=== PATIENT | female | born 1960 | race Caucasian/White ===

== ENCOUNTER → 2016-07-18 | Outpatient (CLI) | payer OTHER ==
--- NOTE | 2016-07-18 16:41 | REP ---
Digital diagnostic bilateral mammography with CAD and focused left breast sonography: History: Patient is status post ultrasound-guided needle biopsy in Dr. Hunter's office. The lump palpated at 4 o'clock in the left breast 1 cm from the nipple by the referring provider on today's clinical breast exam. Comparison mammography is from 02/26/2016, 07/26/2015. Findings: A needle biopsy marker is again seen at approximately 12 o'clock in the left breast. A sharply circumscribed relatively low density 5 mm nodule is again visible in the left upper outer quadrant unchanged from 07/26/2015. Scattered fibroglandular elements are noted bilaterally. The right breast is unchanged from 07/17/2015 and 07/11/2014. No other neodensity is seen. No microcalcification is observed. No other mammographic finding. Sonographic findings: The left breast is scanned from 3 o'clock to 6 o'clock with reference to the providers clinical breast exam noted a lump at 4 o'clock, 1 cm from the nipple. Focused left breast sonographic images show heterogeneous fibroglandular background echotexture. No cyst, mass, architectural distortion or acoustic shadowing is seen by ultrasound. Impression: BIRADS category three probably benign breast imaging. No change in 1 year in the small relatively low density sharply circumscribed 5 mm nodule in the upper outer quadrant on the left. No correlate for the palpable lump described at 4 o'clock by either ultrasound or mammography. Clinical follow-up for this is recommended. 6-month follow-up left breast mammography recommended with repeat bilateral study in 1 year. This mammogram was interpreted with the aid of an FDA-approved computer-aided detection system. The patient states she had a clinical breast exam in July 2016. The patient letter being requested is M3. Signed by David Corona MD 07/18/2016 05:01 P
== END ==
LOC: M RAD 15:22
PROVIDERS: ATTEND Nurse Practitioner Family
DX: Z12.31 Encounter for screening mammogram for malignant neoplasm of breast (principal)

== ENCOUNTER → 2016-11-09 | Outpatient (CLI) | payer OTHER ==
[2016-11-09 09:57] LABS: MEAN CORPUSCULAR HEMOGLOBIN 31.2 pg (27.0-33.0); MEAN CORPUSCULAR HGB CONC 33.7 g/dl (32.0-36.5); MEAN CORPUSCULAR VOLUME 92.6 fl (80.0-96.0); RED CELL DISTRIBUTION WIDTH 12.6 % (11.5-14.5); WHITE BLOOD COUNT 5.1 K/mm3 (4.0-10.0)
[2016-11-09 10:24] LABS: ALBUMIN/GLOBULIN RATIO 1.21 (1.00-1.93); ALKALINE PHOSPHATASE 92 U/L (45-117); ALT/SGPT 34 U/L (12-78); ANION GAP 6 MEQ/L (8-16); AST/SGOT 17 U/L (15-37); BILIRUBIN,TOTAL 0.6 MG/DL (0.2-1.0); BLOOD UREA NITROGEN 10 MG/DL (7-18); CALCIUM LEVEL 9.1 MG/DL (8.5-10.1); CARBON DIOXIDE LEVEL 32 MEQ/L (21-32); CHLORIDE LEVEL 101 MEQ/L (98-107); CHOLESTEROL LEVEL 208 MG/DL (<200); CREATININE FOR GFR 0.78 MG/DL (0.55-1.02); GLOMERULAR FILTRATION RATE > 60.0 (>51); GLUCOSE, FASTING 107 MG/DL (70-105); POTASSIUM SERUM 3.9 MEQ/L (3.5-5.1); SODIUM LEVEL 139 MEQ/L (136-145); TOTAL PROTEIN 7.3 GM/DL (6.4-8.2); TRIGLYCERIDES LEVEL 136 MG/DL (<150)
--- NOTE | 2016-11-09 10:42 | REP ---
CHEST X-RAY PA AND LATERAL: 11/09/2016 CLINICAL HISTORY: Hypertension, fatigue. COMPARISON: 02/07/2015, 10/23/2013, 08/21/2012. FINDINGS: Subtle pleural opacity left mid lateral lung zone on the frontal view, unchanged and likely pleural plaque. Some infrahilar fibrotic changes on the right. There is no effusion, dense consolidation or parenchymal lesion otherwise. The heart, mediastinal and hilar contours remain normal. Airway is intact. The aorta unremarkable. Bony thorax without acute compression deformity. IMPRESSION: 1. Radiographic findings suggesting a pleural plaque on the left and some basilar fibrotic change without cardiomegaly, edema, effusion or other acute finding. Stable examination. Signed by Nic Guevara MD 11/09/2016 07:54 P
--- NOTE | 2016-11-11 01:01 | ECGEPIP ---
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
== END ==
LOC: M LAB 08:43
PROVIDERS: ATTEND Family Medicine
DX: I10 Essential (primary) hypertension (principal)

== ENCOUNTER → 2017-02-05 | Outpatient (CLI) | payer OTHER ==
--- NOTE | 2017-02-05 14:47 | REP ---
DIAGNOSTIC MAMMOGRAM LEFT BREAST: Multiple views of left breast performed and correlated with prior studies, most recent of which is 07/18/2016. Small subcentimeter nodule laterally in the left breast was initially seen on the exam of 07/17/2015 and has remained stable since that time. Once again, the 4 mm nodular opacity laterally in the left breast remains stable in appearance and size. No new nodule or clustered microcalcifications are seen. IMPRESSION: ACR 3 probably benign. Stable 4 mm nodular density lateral left breast, unchanged since 07/17/2015 exam. Recommend followup bilateral mammogram in July 2017. This mammogram was interpreted with the aid of an FDA-approved computer-aided detection system. The patient states she/he had a clinical breast exam in 07/2016. The patient letter being requested is M3. Signed by Robert Alcala MD 02/06/2017 05:33 P
== END ==
LOC: M RAD 13:07
PROVIDERS: ATTEND Nurse Practitioner Family
DX: R92.8 Other abnormal and inconclusive findings on diagnostic imaging of breast (principal)

== ENCOUNTER → 2017-08-07 | Outpatient (CLI) | payer OTHER | LOC: M RAD 13:06 | DX: Z12.31 Encounter for screening mammogram for malignant neoplasm of breast (principal); Z92.23 Personal history of estrogen therapy ==

== ENCOUNTER → 2018-08-08 | Outpatient (CLI) | payer OTHER ==
[2018-08-08 08:51] LABS: HEMATOCRIT 43.8 % (36.0-47.0); HEMOGLOBIN 14.5 g/dl (12.0-15.5); MEAN CORPUSCULAR HEMOGLOBIN 30.9 pg (27.0-33.0); MEAN CORPUSCULAR HGB CONC 33.1 g/dl (32.0-36.5); MEAN CORPUSCULAR VOLUME 93.4 fl (80.0-96.0); PLATELET COUNT, AUTOMATED 396 10^3/uL (150-450); RED BLOOD COUNT 4.69 10^6/uL (4.00-5.40); WHITE BLOOD COUNT 5.7 10^3/uL (4.0-10.0)
[2018-08-08 09:19] LABS: ALBUMIN 3.7 GM/DL (3.2-5.2); ALT/SGPT 31 U/L (12-78); BILIRUBIN,TOTAL 0.6 MG/DL (0.2-1.0); BLOOD UREA NITROGEN 12 MG/DL (7-18); CALCIUM LEVEL 8.8 MG/DL (8.5-10.1); CARBON DIOXIDE LEVEL 30 MEQ/L (21-32); CHLORIDE LEVEL 104 MEQ/L (98-107); CHOLESTEROL LEVEL 233 MG/DL (<200); CHOLESTEROL RISK RATIO 6.852 (<5); CREATININE FOR GFR 0.71 MG/DL (0.55-1.30); GLOMERULAR FILTRATION RATE > 60.0 (>51); GLUCOSE, FASTING 110 MG/DL (70-100); HDL CHOLESTEROL 34 MG/DL (>40); LDL CHOLESTEROL 156 MG/DL (<100); NON-HDL-C 199 MG/DL; POTASSIUM SERUM 4.3 MEQ/L (3.5-5.1); SODIUM LEVEL 141 MEQ/L (136-145); TOTAL PROTEIN 6.9 GM/DL (6.4-8.2); TRIGLYCERIDES LEVEL 213 MG/DL (<150)
[2018-08-08 09:46] LABS: HEMOGLOBIN A1c 6.3 %
[2018-08-10 10:46] LABS: TOTAL 25(OH) VITAMIN D 47.7 NG/ML (30.0-100.0)
== END ==
LOC: M LAB 08:08
PROVIDERS: ATTEND Family Medicine
DX: I10 Essential (primary) hypertension (principal); E03.9 Hypothyroidism, unspecified

== ENCOUNTER → 2018-08-13 | Outpatient (CLI) | payer OTHER ==
--- NOTE | 2018-08-13 13:57 | REPMRS ---
Patient History The patient states she had a clinical breast exam in July 2018. No known family history of cancer. Benign ultrasound-guided core biopsy of the left breast, August 08, 2015. Taking estrogen for 4 years. 3D TOMOSYNTHESIS WAS PERFORMED. Digital Mammo Screening Bilat: August 13, 2018 - Exam #: [id number] Bilateral CC and MLO view(s) were taken. Technologist: Whitney Mitchell, Technologist Prior study comparison: August 07, 2017, digital mammo diagnostic bilateral performed at [facility]. February 05, 2017, left breast digital mammo diagnostic unilateral performed at [facility]. FINDINGS: The breast tissue is heterogeneously dense. This may lower the sensitivity of mammography. There has been no change in the appearance of the mammogram from the prior studies. There is a moderate amount of residual fibroglandular tissue which is fairly symmetric. There is no interval development of dominant mass, areas of architectural distortion, or clustered microcalcification typical of malignancy. Assessment: BI-RADS/ACR category 1 mammogram. Negative Mammogram. Recommendation Routine screening mammogram in 1 year (for women over age 40). This mammogram was interpreted with the aid of an FDA-approved computer-aided dectection system. Electronically Signed By: Robert Alcala MD 08/13/18 [id number]
== END ==
LOC: M RAD 13:02
PROVIDERS: ATTEND Nurse Practitioner Family
DX: Z12.31 Encounter for screening mammogram for malignant neoplasm of breast (principal); Z79.890 Hormone replacement therapy

== ENCOUNTER → 2019-09-23 | Outpatient (CLI) | payer OTHER ==
--- NOTE | 2019-09-23 09:39 | REPMRS ---
Patient History The patient states she had a clinical breast exam in July 2019.No known family history of cancer. Benign ultrasound-guided core biopsy of the left breast, August 08, 2015. Taking estrogen for 4 years. Digital Woman Screen Mammo: September 23, 2019 - Exam #: [id number] Bilateral CC and MLO view(s) were taken. Technologist: Whitney Mitchell, Technologist Prior study comparison: August 13, 2018, bilateral digital mammo screening bilat, performed at [facility]. August 07, 2017, digital mammo diagnostic bilateral, performed at [facility]. February 05, 2017, left breast digital mammo diagnostic unilateral, performed at [facility]. FINDINGS: There are scattered fibroglandular densities. The Volpara volumetric breast density category is:B. There is a needle biopsy marker clip again noted in the left breast. There has been no change in the appearance of the mammogram from the prior studies. There is a mild amount of scattered fibroglandular density which is fairly symmetric. There is no interval development of dominant mass, architectural distortion, or grouped microcalcification suggestive of malignancy. 3-D tomosynthesis shows no additional findings. Assessment: BI-RADS/ACR category 2 mammogram. Benign Findings. Recommendation Routine screening mammogram of both breasts in 1 year (for women over age 40). This patient's Lifetime Breast Cancer Risk is estimated at 12.8 %. This mammogram was interpreted with the aid of an FDA-approved computer-aided dectection system. Electronically Signed By: Livan Corona MD 09/23/19 0939
== END ==
LOC: M WHC 08:53
PROVIDERS: ATTEND Nurse Practitioner Family
DX: Z12.31 Encounter for screening mammogram for malignant neoplasm of breast (principal)

== ENCOUNTER → 2020-05-06 | Outpatient (CLI) | payer OTHER ==
[2020-05-06 10:03] LABS: HEMATOCRIT 44.7 % (36.0-47.0); HEMOGLOBIN 14.4 g/dl (12.0-15.5); MEAN CORPUSCULAR HEMOGLOBIN 30.3 pg (27.0-33.0); MEAN CORPUSCULAR HGB CONC 32.2 g/dl (32.0-36.5); MEAN CORPUSCULAR VOLUME 93.9 fl (80.0-96.0); PLATELET COUNT, AUTOMATED 428 10^3/uL (150-450); RED BLOOD COUNT 4.76 10^6/uL (4.00-5.40); WHITE BLOOD COUNT 5.9 10^3/uL (4.0-10.0)
[2020-05-06 10:35] LABS: ALBUMIN 3.8 GM/DL (3.2-5.2); ALT/SGPT 40 U/L (12-78); BILIRUBIN,TOTAL 0.6 MG/DL (0.2-1.0); BLOOD UREA NITROGEN 14 MG/DL (7-18); CALCIUM LEVEL 9.2 MG/DL (8.5-10.1); CARBON DIOXIDE LEVEL 30 MEQ/L (21-32); CHLORIDE LEVEL 103 MEQ/L (98-107); CHOLESTEROL LEVEL 232 MG/DL (<200); CREATININE FOR GFR 0.78 MG/DL (0.55-1.30); GLOMERULAR FILTRATION RATE > 60.0 (>51); GLUCOSE, FASTING 107 MG/DL (70-100); HDL CHOLESTEROL 33 MG/DL (>40); LDL CHOLESTEROL 172 MG/DL (<100); NON-HDL-C 199 MG/DL; POTASSIUM SERUM 4.2 MEQ/L (3.5-5.1); SODIUM LEVEL 140 MEQ/L (136-145); TOTAL PROTEIN 6.9 GM/DL (6.4-8.2); TRIGLYCERIDES LEVEL 135 MG/DL (<150)
[2020-05-06 11:11] LABS: HEMOGLOBIN A1c 6.3 %
[2020-05-08 13:13] LABS: TOTAL 25(OH) VITAMIN D 54.6 NG/ML (30.0-100.0)
== END ==
LOC: M LAB 09:14
PROVIDERS: ATTEND Family Medicine
DX: R53.81 Other malaise (principal); I10 Essential (primary) hypertension; E11.9 Type 2 diabetes mellitus without complications

== ENCOUNTER → 2020-09-25 | Outpatient (CLI) | payer OTHER ==
--- NOTE | 2020-09-25 08:53 | REPMRS ---
Patient History The patient states she had a clinical breast exam in 07/2020. Patient had first child at age 36. No known family history of cancer. Benign ultrasound-guided core biopsy of the left breast, August 08, 2015. Took estrogen for 4 years. Patient states no breast complaints today. Patient has signed MRS History Sheet. Digital Woman Screen Mammo: September 25, 2020 - Exam #: [id number] Bilateral CC and MLO view(s) were taken. Technologist: Anila Lugo, Technologist Prior study comparison: September 23, 2019, bilateral digital woman screen mammo performed at [facility]. August 13, 2018, bilateral digital mammo screening bilat, performed at [facility]. FINDINGS: There are scattered fibroglandular densities. Screening. Digital screening (2D) mammography was performed bilaterally in the CC and MLO projections. Additionally, breast tomosynthesis (3D mammography) was performed bilaterally in the CC and MLO projections. Todays exam was compared to the prior exams(s). By history, the patient has no complaints of a palpable breast abnormality or other significant breast complaints. The breasts are unchanged in size and shape. There are no jada-soft tissue densities or spiculated masses. There is no internal architectural distortion. There are no suspicious jada-calcific clusters. Skin thickening or nipple retraction is not present. IMPRESSION: BI-RADS Category 2- Benign Findings(s). There is no evidence of malignant alteration of the breasts. Followup examination recommended in one year. The Volpara volumetric breast density category is B, there are scattered areas of fibroglandular density. This mammogram was read with the assistance of [employer],an FDA approved computer aided detection system for mammography. The lifetime Tyrer-Cuzick score is 12.6% Negative x-ray reports should not delay surgical consultation if a dominant or clinically suspicious mass is present. Not all breast cancers can be identified by mammography. Therefore, we recommend that you continue to perform regular breast self-examination and physical examination and then promptly contact your physician of any concerns or changes. Adenosis and dense breasts may obscure an underlying neoplasm. Assessment: BI-RADS/ACR category 2 mammogram. Benign Findings. Recommendation Routine screening mammogram of both breasts in 1 year. Electronically Signed By: Caio Frye DO 09/25/20 0805
== END ==
LOC: M WHC 07:55
PROVIDERS: ATTEND Nurse Practitioner Family
DX: Z12.31 Encounter for screening mammogram for malignant neoplasm of breast (principal); Z86.018 Personal history of other benign neoplasm

== ENCOUNTER → 2021-05-05 | Outpatient (CLI) | payer OTHER ==
[2021-05-05 09:11] LABS: HEMATOCRIT 42.9 % (36.0-47.0); HEMOGLOBIN 14.4 g/dl (12.0-15.5); MEAN CORPUSCULAR HEMOGLOBIN 31.2 pg (27.0-33.0); MEAN CORPUSCULAR HGB CONC 33.6 g/dl (32.0-36.5); MEAN CORPUSCULAR VOLUME 93.1 fl (80.0-96.0); PLATELET COUNT, AUTOMATED 408 10^3/uL (150-450); RED BLOOD COUNT 4.61 10^6/uL (4.00-5.40); WHITE BLOOD COUNT 5.9 10^3/uL (4.0-10.0)
[2021-05-05 09:31] LABS: HEMOGLOBIN A1c 6.2 %
[2021-05-05 09:41] LABS: ALBUMIN 3.8 GM/DL (3.2-5.2); ALT/SGPT 36 U/L (12-78); BILIRUBIN,TOTAL 0.7 MG/DL (0.2-1.0); BLOOD UREA NITROGEN 15 MG/DL (7-18); CALCIUM LEVEL 9.3 MG/DL (8.5-10.1); CARBON DIOXIDE LEVEL 30 MEQ/L (21-32); CHLORIDE LEVEL 104 MEQ/L (98-107); CHOLESTEROL LEVEL 213 MG/DL (<200); CHOLESTEROL RISK RATIO 6.264 (<5); CREATININE FOR GFR 0.76 MG/DL (0.55-1.30); GLOMERULAR FILTRATION RATE > 60.0 (>51); GLUCOSE, FASTING 108 MG/DL (70-100); HDL CHOLESTEROL 34 MG/DL (>40); LDL CHOLESTEROL 147 MG/DL (<100); NON-HDL-C 179 MG/DL; SODIUM LEVEL 139 MEQ/L (136-145); TRIGLYCERIDES LEVEL 160 MG/DL (<150)
[2021-05-07 10:22] LABS: TOTAL 25(OH) VITAMIN D 47.4 NG/ML (30.0-100.0)
== END ==
LOC: M LAB 08:16
PROVIDERS: ATTEND Family Medicine
DX: I10 Essential (primary) hypertension (principal); R53.83 Other fatigue

== ENCOUNTER → 2021-10-06 | Outpatient (CLI) | payer OTHER ==
[2021-10-06 08:43] LABS: HEMATOCRIT 43.2 % (36.0-47.0); HEMOGLOBIN 14.7 g/dl (12.0-15.5); MEAN CORPUSCULAR VOLUME 94.1 fl (80.0-96.0); PLATELET COUNT, AUTOMATED 376 10^3/uL (150-450); RED BLOOD COUNT 4.59 10^6/uL (4.00-5.40); WHITE BLOOD COUNT 5.8 10^3/uL (4.0-10.0)
[2021-10-06 09:11] LABS: ALBUMIN 3.7 GM/DL (3.2-5.2); ALT/SGPT 38 U/L (12-78); BILIRUBIN,TOTAL 0.6 MG/DL (0.2-1.0); BLOOD UREA NITROGEN 13 MG/DL (7-18); CALCIUM LEVEL 9.4 MG/DL (8.8-10.2); CARBON DIOXIDE LEVEL 28 MEQ/L (21-32); CHLORIDE LEVEL 107 MEQ/L (98-107); CHOLESTEROL LEVEL 147 MG/DL (<200); CHOLESTEROL RISK RATIO 4.083 (<5); CREATININE FOR GFR 0.78 MG/DL (0.55-1.30); GLOMERULAR FILTRATION RATE > 60.0 (>45); GLUCOSE, FASTING 117 MG/DL (70-100); HDL CHOLESTEROL 36 MG/DL (>40); LDL CHOLESTEROL 90 MG/DL (<100); NON-HDL-C 111 MG/DL; POTASSIUM SERUM 4.4 MEQ/L (3.5-5.1); SODIUM LEVEL 142 MEQ/L (136-145); TOTAL PROTEIN 6.9 GM/DL (6.4-8.2); TRIGLYCERIDES LEVEL 106 MG/DL (<150)
[2021-10-06 09:21] LABS: HEMOGLOBIN A1c 6.4 %
[2021-10-08 13:23] LABS: TOTAL 25(OH) VITAMIN D 60.6 NG/ML (30.0-100.0)
== END ==
LOC: M EKG 08:10
PROVIDERS: ATTEND Family Medicine
DX: I10 Essential (primary) hypertension (principal); R53.83 Other fatigue; E03.9 Hypothyroidism, unspecified; I70.0 Atherosclerosis of aorta

== ENCOUNTER → 2022-01-11 | Outpatient (CLI) | payer OTHER | LOC: M WHC 12:57 | PROVIDERS: ATTEND Nurse Practitioner Family | DX: Z12.31 Encounter for screening mammogram for malignant neoplasm of breast (principal) ==

== ENCOUNTER → 2022-05-17 | Outpatient (CLI) | payer OTHER ==
[2022-05-17 09:10] LABS: HEMATOCRIT 44.8 % (36.0-47.0); HEMOGLOBIN 14.6 g/dl (12.0-15.5); MEAN CORPUSCULAR HEMOGLOBIN 30.8 pg (27.0-33.0); MEAN CORPUSCULAR HGB CONC 32.6 g/dl (32.0-36.5); MEAN CORPUSCULAR VOLUME 94.5 fl (80.0-96.0); PLATELET COUNT, AUTOMATED 383 10^3/uL (150-450); RED BLOOD COUNT 4.74 10^6/uL (4.00-5.40); WHITE BLOOD COUNT 5.8 10^3/uL (4.0-10.0)
[2022-05-17 09:40] LABS: ALBUMIN 3.8 G/DL (3.2-5.2); ALKALINE PHOSPHATASE 84 U/L (46-116); ALT/SGPT 33 U/L (7.0-40); AST/SGOT 22 U/L (<34); BILIRUBIN,TOTAL 0.6 MG/DL (0.3-1.2); BLOOD UREA NITROGEN 13 MG/DL (9-23); CALCIUM LEVEL 9.3 MG/DL (8.3-10.6); CARBON DIOXIDE LEVEL 32 MMOL/L (20-31); CHLORIDE LEVEL 103 MMOL/L (98-107); CHOLESTEROL LEVEL 139 MG/DL (<200); CHOLESTEROL RISK RATIO 4.37 (<5); CREATININE FOR GFR 0.75 MG/DL (0.55-1.30); GLOMERULAR FILTRATION RATE > 60.0 (>45); GLUCOSE, FASTING 118 MG/DL (74-106); HDL CHOLESTEROL 31.8 MG/DL (>40); LDL CHOLESTEROL 81.2 MG/DL (<100); NON-HDL-C 107 MG/DL; POTASSIUM SERUM 4.2 MMOL/L (3.5-5.1); SODIUM LEVEL 139 MMOL/L (136-145); TOTAL PROTEIN 6.6 G/DL (5.7-8.2); TRIGLYCERIDES LEVEL 130 MG/DL (<150)
[2022-05-17 09:42] LABS: THYROID STIMULATING HORMONE 0.423 uIU/ML (0.55-4.78); TOTAL 25(OH) VITAMIN D 64.3 NG/ML (20.0-100.0)
[2022-05-17 10:11] LABS: HEMOGLOBIN A1c 6.2 % (4.0-6.0)
== END ==
LOC: M LAB 08:13
PROVIDERS: ATTEND Family Medicine
DX: I10 Essential (primary) hypertension (principal); R53.83 Other fatigue; E03.9 Hypothyroidism, unspecified

== ENCOUNTER → 2023-01-16 | Outpatient (CLI) | payer OTHER | LOC: M WHC 09:54 | PROVIDERS: ATTEND Nurse Practitioner Family | DX: Z12.31 Encounter for screening mammogram for malignant neoplasm of breast (principal) ==

== ENCOUNTER → 2023-02-17 | Outpatient (CLI) | payer OTHER ==
[~2023-02-17] MED LIST: ISOVUE-370 76% 100ML VIAL ONE
== END ==
LOC: M PLAIMG 07:53
PROVIDERS: ATTEND Otolaryngology
DX: R22.1 Localized swelling, mass and lump, neck (principal)
CPT/HCPCS: 70491; Q9967

== ENCOUNTER → 2023-03-31 | Outpatient (CLI) | payer OTHER | LOC: M RAD 15:32 | PROVIDERS: ATTEND Otolaryngology | DX: J32.0 Chronic maxillary sinusitis (principal) ==

== ENCOUNTER → 2023-05-16 | Outpatient (CLI) | payer OTHER | LOC: M SLEEP HO 10:55 | PROVIDERS: ATTEND Physician Assistant | DX: R40.0 Somnolence (principal); R06.83 Snoring; G47.30 Sleep apnea, unspecified ==

== ENCOUNTER → 2024-01-21 | Outpatient (CLI) | payer OTHER | LOC: M WHC 08:06 | PROVIDERS: ATTEND Nurse Practitioner Family | DX: Z12.31 Encounter for screening mammogram for malignant neoplasm of breast (principal) ==

== ENCOUNTER → 2024-02-21 | Outpatient (CLI) | payer OTHER ==
[2024-02-21 09:08] LABS: HEMATOCRIT 43.1 % (36.0-47.0); HEMOGLOBIN 14.5 g/dl (12.0-15.5); MEAN CORPUSCULAR HEMOGLOBIN 31.3 pg (27.0-33.0); MEAN CORPUSCULAR HGB CONC 33.6 g/dl (32.0-36.5); MEAN CORPUSCULAR VOLUME 93.1 fl (80.0-96.0); PLATELET COUNT, AUTOMATED 389 10^3/uL (150-450); RED BLOOD COUNT 4.63 10^6/uL (4.00-5.40); WHITE BLOOD COUNT 5.6 10^3/uL (4.0-10.0)
[2024-02-21 09:30] LABS: HEMOGLOBIN A1c 6.9 % (4.0-6.0)
[2024-02-21 09:36] LABS: ALBUMIN 3.8 G/DL (3.2-5.2); ALKALINE PHOSPHATASE 90 U/L (46-116); ALT/SGPT 43 U/L (7.0-40); AST/SGOT 21 U/L (<34); BILIRUBIN,TOTAL 0.7 MG/DL (0.3-1.2); BLOOD UREA NITROGEN 12 MG/DL (9-23); CALCIUM LEVEL 10.1 MG/DL (8.3-10.6); CARBON DIOXIDE LEVEL 32 MMOL/L (20-31); CHLORIDE LEVEL 102 MMOL/L (98-107); CHOLESTEROL LEVEL 155 MG/DL (<200); CHOLESTEROL RISK RATIO 5.14 (<5); GLOMERULAR FILTRATION RATE > 60.0 (>45); GLUCOSE, FASTING 128 MG/DL (74-106); HDL CHOLESTEROL 30.1 MG/DL (>40); LDL CHOLESTEROL 98.5 MG/DL (<100); NON-HDL-C 124.9 MG/DL; POTASSIUM SERUM 4.2 MMOL/L (3.5-5.1); SODIUM LEVEL 140 MMOL/L (136-145); TRIGLYCERIDES LEVEL 132 MG/DL (<150)
[2024-02-21 09:38] LABS: THYROID STIMULATING HORMONE 1.772 uIU/ML (0.55-4.78); TOTAL 25(OH) VITAMIN D 78.6 NG/ML (20.0-100.0)
== END ==
LOC: M LAB 08:09
PROVIDERS: ATTEND Family Medicine
DX: I10 Essential (primary) hypertension (principal); R53.83 Other fatigue; E03.9 Hypothyroidism, unspecified

== ENCOUNTER → 2024-08-21 | Outpatient (CLI) | payer BC ==
[2024-08-21 09:18] LABS: HEMATOCRIT 42.8 % (36.0-47.0); HEMOGLOBIN 14.4 g/dl (12.0-15.5); MEAN CORPUSCULAR HEMOGLOBIN 31.6 pg (27.0-33.0); MEAN CORPUSCULAR HGB CONC 33.6 g/dl (32.0-36.5); MEAN CORPUSCULAR VOLUME 93.9 fl (80.0-96.0); PLATELET COUNT, AUTOMATED 375 10^3/uL (150-450); RED BLOOD COUNT 4.56 10^6/uL (4.00-5.40); WHITE BLOOD COUNT 5.7 10^3/uL (4.0-10.0)
[2024-08-21 09:22] LABS: ALBUMIN 3.8 G/DL (3.2-5.2); ALKALINE PHOSPHATASE 80 U/L (35-104); ALT/SGPT 41 U/L (7.0-40); AST/SGOT 25 U/L (<34); BILIRUBIN,TOTAL 0.7 MG/DL (0.3-1.2); BLOOD UREA NITROGEN 13 MG/DL (9-23); CALCIUM LEVEL 9.5 MG/DL (8.3-10.6); CARBON DIOXIDE LEVEL 32 MMOL/L (20-31); CHLORIDE LEVEL 102 MMOL/L (98-107); CHOLESTEROL LEVEL 164 MG/DL (<200); CHOLESTEROL RISK RATIO 4.95 (<5); CREATININE FOR GFR 0.66 MG/DL (0.55-1.30); GLOMERULAR FILTRATION RATE > 60.0 (>45); GLUCOSE, FASTING 132 MG/DL (74-106); HDL CHOLESTEROL 33.1 MG/DL (>40); LDL CHOLESTEROL 94.9 MG/DL (<100); NON-HDL-C 130.9 MG/DL; POTASSIUM SERUM 4.4 MMOL/L (3.5-5.1); SODIUM LEVEL 140 MMOL/L (136-145); TOTAL PROTEIN 6.9 G/DL (5.7-8.2); TRIGLYCERIDES LEVEL 180 MG/DL (<150)
[2024-08-21 09:24] LABS: THYROID STIMULATING HORMONE 0.533 uIU/ML (0.55-4.78); TOTAL 25(OH) VITAMIN D 75.7 NG/ML (20.0-100.0)
[2024-08-21 09:38] LABS: HEMOGLOBIN A1c 6.5 % (4.0-6.0)
== END ==
LOC: M LAB 08:19
PROVIDERS: ATTEND Family Medicine
DX: R53.83 Other fatigue (principal); I10 Essential (primary) hypertension; E11.9 Type 2 diabetes mellitus without complications

== ENCOUNTER → 2025-02-09 | Outpatient (CLI) | payer BC | LOC: M WHC 08:09 | PROVIDERS: ATTEND Physician Assistant | DX: Z12.31 Encounter for screening mammogram for malignant neoplasm of breast (principal); R92.323 Mammographic fibroglandular density, bilateral breasts ==